=== PATIENT | male | born 1995 | race Caucasian/White ===

== ENCOUNTER 2018-10-28 17:34 | Emergency (ER) | payer OTHER ==
--- NOTE | 2018-10-28 19:20 | ED ---
Dizziness - HPI Summary HPI Summary: This pt is a 23 y/o male presenting to [facility] referred by [facility] for dizziness since yesterday. Pt reports he has hx of anxiety and takes medications for this. Pt notes his dizziness is intermittently and states when he's home he does not have dizziness. Pt believes dizziness might be stress related. Denies headache, chest pain, SOB, nausea, vomiting. He notes his blood pressure is not normally elevated. Pt drinks alcohol on the weekends. Denies tobacco and drug use. - History Of Current Complaint Chief Complaint: EDDizziness Stated Complaint: DIZZINESS Time Seen by Provider: 10/28/18 19:09 Hx Obtained From: Patient Onset/Duration: Still Present Timing: Intermittent Episode Lasting - hours Severity Currently: Mild Character: Dizzy Aggravating Factor(s): Nothing Alleviating Factor(s): Nothing Associated Signs And Symptoms: Positive: Other: - POS: anxiety. Negative: Nausea, Vomiting, Chest Pain, SOB, Fever, Chills - Allergies/Home Medications Allergies/Adverse Reactions: Allergies Allergy/AdvReac Type Severity Reaction Status Date / Time No Known Allergies Allergy Verified 06/09/15 19:47 PMH/Surg Hx/FS Hx/Imm Hx Endocrine/Hematology History: Denies: Hx Diabetes Cardiovascular History: Denies: Hx Congestive Heart Failure, Hx Hypertension History: Denies: Hx Dialysis, Hx Renal Disease Psychiatric History: Reports: Hx Anxiety Infectious Disease History: No Infectious Disease History: Denies: Traveled Outside the [place] in Last 30 Days - Family History Known Family History: Negative: Cardiac Disease - Social History Alcohol Use: Weekly Substance Use Type: Reports: None Smoking Status (MU): Never Smoked Tobacco Review of Systems Negative: Fever, Chills Negative: Chest Pain Negative: Shortness Of Breath Negative: Vomiting, Nausea Neurological: Other - POS: dizziness Negative: Headache Positive: Anxious All Other Systems Reviewed And Are Negative: Yes Physical Exam - Summary Physical Exam Summary: Appearance: Well appearing, no pain distress Skin: warm, dry, reflects adequate perfusion Head/face: normal Eyes: EOMI, KIMMY ENT: normal Neck: supple, nontender Respiratory: CTA, breath sounds present Cardiovascular: RRR, pulses symmetrical Abdomen: nontender, soft Musculoskeletal: normal, strength/ROM intact Neuro: normal, sensory motor intact, A&Ox3 Triage Information Reviewed: Yes Vital Signs On Initial Exam: Initial Vitals Temp Pulse Resp BP Pulse Ox 97.8 F 80 16 157/102 100 10/28/18 17:43 10/28/18 17:43 10/28/18 17:43 10/28/18 17:43 10/28/18 17:43 Vital Signs Reviewed: Yes - Mobile Coma Scale Best Eye Response: 4 - Spontaneous Best Motor Response: 6 - Obeys Commands Best Verbal Response: 5 - Oriented Coma Scale Total: 15 Diagnostics - Vital Signs Vital Signs Temp Pulse Resp BP Pulse Ox 10/28/18 19:00 87 99 10/28/18 18:53 91 149/92 100 10/28/18 18:49 97 157/101 100 10/28/18 18:48 84 99 10/28/18 17:43 97.8 F 80 16 157/102 100 - Laboratory Result Diagrams: 10/28/18 19:28 10/28/18 19:28 Lab Statement: Any lab studies that have been ordered have been reviewed, and results considered in the medical decision making process. - CT Brain CT CT Interpretation Completed By: Radiologist Summary of CT Findings: IMPRESSION: Normal head CT. Dr. Layton has reviewed this report. - EKG 18:59 Cardiac Rate: NL - at 82 bpm EKG Rhythm: Sinus Rhythm Summary of EKG Findings: no acute changes. Re-Evaluation - Re-Evaluation First Eval Re-Evaluation Time: 20:45 Comment: Reviewed lab and brain CT results with the pt. Dizzy Course/Dx - Course Assessment/Plan: Pt is a 23 y/o male, with hx of anxiety, who presents from [facility] for dizziness since yesterday. Pt notes his dizziness is intermittently and states when he's home he does not have dizziness. Pt believes dizziness might be stress related. Blood work, EKG and CT obtained. Brain CT shows normal head CT. I reviewed the lab and CT results with the pt. He will be discharged home with follow up from his PCP in 2-3 days to have his blood pressure rechecked to determine if he needs medications. Pt was instructed to return to the ED for any worsening or new symptoms. He understands and agrees. - Diagnoses Differential Diagnosis/HQI/PQRI: Dysrhythmia, Other - htn Provider Diagnoses: Anxiety, Hypertension Discharge - Sign-Out/Discharge Documenting (check all that apply): Patient Departure - Discharge home - Discharge Plan Condition: Stable Disposition: HOME Patient Education Materials: Hypertension (ED), Anxiety (ED) Referrals: [facility] [Outside] Additional Instructions: Please follow up with your primary care provider in 2-3 days for a blood pressure check to determine if you need medications. RETURN TO THE ED FOR ANY WORSENING OR NEW SYMPTOMS. - Billing Disposition and Condition Condition: STABLE Disposition: Home - Attestation Statements Document Initiated by Mehreenibloren: Yes Documenting Scribe: Gege Castro Provider For Whom Berta is Documenting (Include Credential): Austen Layton MD Scribe Attestation: Gege Garcia, scribed for Austen Layton MD on 10/28/18 at [id number]. Scribe Documentation Reviewed: Yes Provider Attestation: The documentation as recorded by the mehreenibGege pimentel accurately reflects the service I personally performed and the decisions made by me, Austen Layton MD Status of Scribe Document: Viewed
[2018-10-28 19:37] LABS: ABS Basophils 0.1 10^3/ul (0-0.2); ABS Eosinophils 0 10^3/ul (0-0.6); ABS Lymphocytes 1.7 10^3/ul (1.0-4.8); ABS Monocytes 0.6 10^3/ul (0-0.8); ABS Neutrophils 10.2 10^3/ul (1.5-7.7); ABS Nucleated RBC 0 10^3/ul; Eosinophil % 0.2 %; Hematocrit 46 % (42-52); Hemoglobin 15.9 g/dl (14.0-18.0); Lymphocyte % 13.4 %; Mean Corpuscular HGB Conc 35 g/dl (31-36); Mean Corpuscular Hemoglobin 30 pg (27-31); Mean Corpuscular Volume 86 fL (80-94); Mean Platelet Volume 6.7 fL (7.4-10.4); Nucleated Red Blood Cells % 0.2; Platelet Count 352 10^3/ul (150-450); Red Blood Count 5.37 10^6/ul (4.00-5.40); Red Cell Distribution Width 13 % (10.5-15); White Blood Count 12.6 10^3/ul (3.5-10.8)
[2018-10-28 20:12] LABS: Albumin/Globulin Ratio 1.6 (1-3); BUN/Creatinine Ratio 12.1 (8-20); Calcium 10.1 mg/dL (8.6-10.3); EGFR African American 115.5 (>60); EGFR Non-African American 95.4 (>60); Globulin 3.1 g/dL (2-4); Potassium 4.3 mmol/L (3.5-5.0); Total Bilirubin 0.5 mg/dL (0.2-1.0); Total Protein 8.1 g/dL (6.4-8.9)
[2018-10-28 20:28] LABS: TSH (Thyroid Stimulating Horm) 1.28 mcIU/mL (0.34-5.60)
[2018-10-28 21:04] VITALS: BP 143/94
== END 2018-10-28 21:03 | disposition home or self-care (01) ==
LOC: ED 17:34
DX: F41.9 Anxiety disorder, unspecified (principal); I10 Essential (primary) hypertension
CPT/HCPCS: 36415; 70450; 80053; 84443; 84484; 85025; 93005; 99282